=== PATIENT | male | born 1955 | race Caucasian/White ===

== ENCOUNTER 2017-04-23 10:42 | Emergency (ER) | payer OTHER ==
[2017-04-23 10:53] VITALS: BP 143/94
--- NOTE | 2017-05-21 14:57 | UC ---
Lower Extremity/Ankle HPI - HPI Summary HPI Summary: missed a step 4 days ago he felt a pop in the back of his leg has had worsening pain and swelling right leg - History of Current Complaint Hx Obtained From: Patient Onset/Duration: Sudden Onset, Lasting Days - 4, Still Present Severity Initially: Mild Severity Currently: Moderate Pain Intensity: 4 Pain Scale Used: 0-10 Numeric Aggravating Factor(s): Standing, Ambulation Able to Bear Weight: Yes <Danii Villanueva - Last Filed: 05/21/17 14:57> <Caitlyn Paez - Last Filed: 05/22/17 06:58> - History of Current Complaint Chief Complaint: UCLowerExtremity Stated Complaint: LEG PAIN Time Seen by Provider: 04/23/17 11:51 - Allergies/Home Medications Allergies/Adverse Reactions: Allergies Allergy/AdvReac Type Severity Reaction Status Date / Time Amoxicillin [From Augmentin] Allergy rash, Verified 04/23/17 10:53 itching Clavulanic Acid Allergy rash, Verified 04/23/17 10:53 [From Augmentin] itching Home Medications: Home Medications Acetaminophen [Eq Pain Reliever] 1 tab PO BID PRN 04/23/17 [History Confirmed ] Ascorbic Acid TAB* [Vitamin C TAB*] 1 tab PO DAILY 04/23/17 [History Confirmed 04/23/17] PMH/Surg Hx/FS Hx/Imm Hx Previously Healthy: No - thrombophlebitis Cardiovascular History: Hypertension - Surgical History Surgical History: Yes Surgery Procedure, Year, and Place: varicose vein "closure procedure" 12 years ago - Family History Known Family History: Positive: Cardiac Disease, Hypertension - Social History Occupation: Employed Full-time Lives: With Family Alcohol Use: Occasionally Alcohol Amount: works at a [employer] Substance Use Type: None Smoking Status (MU): Former Smoker Type: Cigarettes Length of Time of Smoking/Using Tobacco: quit 25 years ago - Immunization History Most Recent Influenza Vaccination: 2014/2015 <Danii Villanueva - Last Filed: 05/21/17 14:57> Review of Systems Constitutional: Negative Skin: Negative Eyes: Negative ENT: Negative Respiratory: Negative Cardiovascular: Negative Gastrointestinal: Negative Genitourinary: Negative Motor: Negative Neurovascular: Negative Musculoskeletal: Myalgia - right lower leg Neurological: Negative Psychological: Negative All Other Systems Reviewed And Are Negative: Yes <Danii Villanueva - Last Filed: 05/21/17 14:57> Physical Exam Triage Information Reviewed: Yes Appearance: Well-Appearing, No Pain Distress, Well-Nourished Vital Signs: Initial Vital Signs Temp 96.5 F 04/23/17 10:47 Pulse 67 04/23/17 10:47 Resp 16 04/23/17 10:47 BP 143/94 04/23/17 10:47 Pulse Ox 97 04/23/17 10:47 Vital Signs Reviewed: Yes Eye Exam: Normal Eyes: Positive: Conjunctiva Clear ENT Exam: Normal ENT: Positive: Normal ENT inspection, Hearing grossly normal. Negative: Nasal congestion, Nasal drainage, Trismus, Muffled/hoarse voice Dental Exam: Normal Neck exam: Normal Neck: Positive: Supple, Nontender Respiratory Exam: Normal Respiratory: Positive: Chest non-tender, No respiratory distress, No accessory muscle use Cardiovascular Exam: Normal Cardiovascular: Positive: RRR, Pulses Normal, Brisk Capillary Refill Musculoskeletal Exam: Normal Musculoskeletal: Positive: Strength Intact, ROM Intact, No Edema Neurological Exam: Normal Neurological: Positive: Alert, Muscle Tone Normal Psychological Exam: Normal Skin Exam: Normal <Danii Villanueva - Last Filed: 05/21/17 14:57> Vital Signs: Initial Vital Signs Temp 96.5 F 04/23/17 10:47 Pulse 67 04/23/17 10:47 Resp 04/23/17 10:47 BP 143/94 04/23/17 10:47 Pulse Ox 97 04/23/17 10:47 <Caitlyn Paez - Last Filed: 05/22/17 06:58> Lower Extremity Course/Dx - Course Course Of Treatment[place] [facility] [place] - Differential Dx/Diagnosis Differential Diagnosis/HQI/PQRI: Contusion, Dislocation, DVT, Fracture (Closed) , Sprain, Strain Provider Diagnoses: right lower leg pain <Danii Villanueva - Last Filed: 05/21/17 14:57> Discharge <Danii Villanueva - Last Filed: 05/21/17 14:57> <Caitlyn Paez - Last Filed: 05/22/17 06:58> - Discharge Plan Condition: Stable Disposition: AGAINST MEDICAL ADVICE Referrals: Tarah Sheffield [Primary Care Provider] - Attestation Statement User Type: Provider - I was available for consult. This patient was seen by the KIMBER. The patient was not presented to, seen by, or examined by me. -Sarai <Caitlyn Paez - Last Filed: 05/22/17 06:58>
== END 2017-04-23 12:12 | disposition left against medical advice (07) ==
LOC: UCEAST 10:42
DX: M79.661 Pain in right lower leg (principal); I10 Essential (primary) hypertension; Z86.72 Personal history of thrombophlebitis; Z88.1 Allergy status to other antibiotic agents; Z87.891 Personal history of nicotine dependence
CPT/HCPCS: 99212; G0463

== ENCOUNTER 2017-04-23 12:35 | Emergency (ER) | payer OTHER ==
[2017-04-23 13:48] LABS: Hematocrit 44 % (42-52); Hemoglobin 15.3 g/dl (14.0-18.0); Mean Corpuscular HGB Conc 35 g/dl (31-36); Mean Corpuscular Hemoglobin 32 pg (27-31); Mean Corpuscular Volume 92 fL (80-94); Mean Platelet Volume 7 um3 (7.4-10.4); Red Blood Count 4.77 10^6/ul (4.0-5.4); Red Cell Distribution Width 13 % (10.5-15); White Blood Count 8.1 10^3/ul (3.5-10.8)
[2017-04-23 14:03] LABS: Albumin 3.9 g/dL (3.2-5.2); BUN/Creatinine Ratio 20.8 (8-20); Calcium 9.2 mg/dL (8.6-10.3); EGFR African American 96.3 (>60); EGFR Non-African American 74.9 (>60); Globulin 2.6 g/dL (2-4); Potassium 4.2 mmol/L (3.5-5.0); Total Bilirubin 0.7 mg/dL (0.2-1.0); Total Protein 6.5 g/dL (6.4-8.9)
--- NOTE | 2017-04-23 14:46 | RAD ---
Indication: Right calf pain. Duplex Doppler sonography of the deep venous system of the right lower extremity deep venous system was performed. Bilaterally the common femoral veins appear patent and compressible. Right proximal greater saphenous vein, proximal deep femoral vein, femoral vein, popliteal vein, posterior tibial veins and peroneal veins appear patent and compressible. In the area of pain there are noncompressible vessels and what appears to be the gastrocnemius veins. These are considered deep veins. IMPRESSION: NONCOMPRESSIBLE GASTROCNEMIUS VEINS IN THE PROXIMAL CALF CONSISTENT WITH DEEP VENOUS THROMBOSIS OF THE GASTROCNEMIUS VEINS.
[2017-04-23] MEDS ORDERED: Rivaroxaban TAB(*) 15 MG PO ONE (14:57)
--- NOTE | 2017-04-23 15:04 | ED ---
Lower Extremity - HPI Summary HPI Summary: 62M presents with right calf pain for a week. He states he felt a pop a week ago and that has had pain since. He has history of thrombophlebitis. He denies any recent immbolization or family history of blood clots. He states the pain is worst when he ambulate for a period of time. He denies any chest pain or SOB. - History of Current Complaint Chief Complaint: EDExtremityLower Stated Complaint: POSS DVT /RT LEG Time Seen by Provider: 04/23/17 12:42 Pain Intensity: 5 - Allergies/Home Medications Allergies/Adverse Reactions: Allergies Allergy/AdvReac Type Severity Reaction Status Date / Time Amoxicillin [From Augmentin] Allergy rash, Verified 04/23/17 10:53 itching Clavulanic Acid Allergy rash, Verified 04/23/17 10:53 [From Augmentin] itching PMH/Surg Hx/FS Hx/Imm Hx Endocrine/Hematology History: Denies: Hx Diabetes, Hx Thyroid Disease Cardiovascular History: Reports: Hx Hypertension Respiratory History: Denies: Hx Asthma, Hx Chronic Obstructive Pulmonary Disease (COPD) GI History: Denies: Hx Ulcer - Surgical History Surgery Procedure, Year, and Place: varicose vein "closure procedure" 12 years ago Infectious Disease History: No Infectious Disease History: Denies: Hx Hepatitis, Hx Human Immunodeficiency Virus (HIV), History Other Infectious Disease, Traveled Outside the in Last 30 Days - Family History Known Family History: Positive: Cardiac Disease, Hypertension - Social History Alcohol Use: Occasionally Alcohol Amount: works at a [employer] ([place]) Substance Use Type: Reports: None Smoking Status (MU): Former Smoker Type: Cigarettes Length of Time of Smoking/Using Tobacco: quit 25 years ago Review of Systems Negative: Fever Negative: Chest Pain Negative: Shortness Of Breath Positive: Edema - right calf All Other Systems Reviewed And Are Negative: Yes Physical Exam Triage Information Reviewed: Yes Vital Signs On Initial Exam: Initial Vitals Temp Pulse Resp BP Pulse Ox 97.8 F 61 16 147/91 97 04/23/17 12:38 04/23/17 12:38 04/23/17 12:38 04/23/17 12:38 04/23/17 12:38 Vital Signs Reviewed: Yes Appearance: Positive: Well-Appearing Skin: Positive: Warm, Dry Head/Face: Positive: Normal Head/Face Inspection Eyes: Positive: Normal, Conjunctiva Clear Respiratory/Lung Sounds: Positive: Clear to Auscultation, Breath Sounds Present Cardiovascular: Positive: Normal, RRR Musculoskeletal: Positive: Strength/ROM Intact - right leg, Chuy Sign Right, Edema Right - calf, Other - varciose veins present. good pulses, capillary refill Diagnostics - Vital Signs Vital Signs Temp Pulse Resp BP Pulse Ox 04/23/17 12:45 97.8 F 61 17 147/91 97 04/23/17 12:42 97.8 F 61 16 147/91 97 04/23/17 12:38 97.8 F 61 16 147/ 97 - Laboratory Lab Results: Lab Results 04/23/17 04/23/17 04/23/17 Range/Units 13:40 13:40 13:40 WBC 8.1 (3.5-10.8) 10^3/ul RBC 4.77 (4.0-5.4) 10^6/ul Hgb 15.3 (14.0-18.0) g/dl Hct 44 (42-52) % MCV 92 (80-94) fL MCH 32 H (27-31) pg MCHC 35 (31-36) g/dl RDW 13 (10.5-15) % Plt Count 205 (150-450) 10^3/ul MPV 7 L (7.4-10.4) um3 Neut % (Auto) 64.1 (38-83) % Lymph % (Auto) 23.6 L (25-47) % [place] % (Auto) 8.0 (1-9) % Eos % (Auto) 3.7 (0-6) % Baso % (Auto) 0.6 (0-2) % Absolute Neuts (auto) 5.2 (1.5-7.7) 10^3/ul Absolute Lymphs (auto) 1.9 (1.0-4.8) 10^3/ul Absolute Monos (auto) 0.6 (0-0.8) 10^3/ul Absolute Eos (auto) 0.3 (0-0.6) 10^3/ul Absolute Basos (auto) 0.1 (0-0.2) 10^3/ul Absolute Nucleated RBC 0 10^3/ul Nucleated RBC % 0.1 INR (Anticoag Therapy) 0.94 (0.89-1.11) Sodium 137 (133-145) mmol/L Potassium 4.2 (3.5-5.0) mmol/L Chloride 108 (101-111) mmol/L Carbon Dioxide 24 (22-32) mmol/L Anion Gap 5 (2-11) mmol/L BUN 21 (6-24) mg/dL Creatinine 1.01 (0.67-1.17) mg/dL Est GFR ( Amer) 96.3 (>60) Est GFR (Non-Af Amer) 74.9 (>60) BUN/Creatinine Ratio 20.8 H (8-20) Glucose 92 (70-100) mg/dL Calcium 9.2 (8.6-10.3) mg/dL Total Bilirubin 0.70 (0.2-1.0) mg/dL AST 23 (13-39) U/L ALT 22 (7-52) U/L Alkaline Phosphatase 85 (34-104) U/L Total Protein 6.5 (6.4-8.9) g/dL Albumin 3.9 (3.2-5.2) g/dL Globulin 2.6 (2-4) g/dL Albumin/Globulin Ratio 1.5 (1-3) Result Diagrams: 04/23/17 13:40 04/23/17 13:40 Lab Statement: Any lab studies that have been ordered have been reviewed, and results considered in the medical decision making process. - Ultrasound No standard instances Ultrasound Interpretation: Positive (See Comments) - IMPRESSION: NONCOMPRESSIBLE GASTROCNEMIUS VEINS IN THE PROXIMAL CALF CONSISTENT WITH DEEP VENOUS THROMBOSIS OF THE GASTROCNEMIUS VEINS. Ultrasound Interpretation Completed By: Radiologist Lower Extremity Course/Dx - Course Course Of Treatment: 62M presents with right calf pain for a week. He states he felt a pop a week ago and that has had pain since. He has history of thrombophlebitis. He denies any recent immbolization or family history of blood clots. He states the pain is worst when he ambulate for a period of time. He denies any chest pain or SOB. on exam pos chuy. u/s shows DVT. discussed options with patient and decided to use xarelto. told to follow up with primary for continued care. patient understands and agrees with plan - Diagnoses Differential Diagnosis/HQI/PQRI: Positive: DVT, Fracture (Closed), Sprain Provider Diagnoses: Deep venous thrombosis Discharge - Discharge Plan Condition: Good Disposition: HOME Prescriptions: Rivaroxaban TAB(*) [Xarelto 15 mg(*)] 15 mg PO BID #41 tab Patient Education Materials: Deep Venous Thrombosis (ED) Referrals: Tarah Sheffield [Primary Care Provider] - Additional Instructions: Take xarelto twice a day for 21 days then once a day Take with food Avoid Aspirin or ibuprofen, use Tylenol for pain Follow up with primary care physician for continued care Return to ED if develop any chest pain or SOB any new or worsening symptoms
[2017-04-23 16:19] VITALS: BP 146/88
== END 2017-04-23 16:05 | disposition home or self-care (01) ==
LOC: ED 12:35
DX: I82.4Z1 Acute embolism and thrombosis of unspecified deep veins of right distal lower extremity (principal); M79.661 Pain in right lower leg; Z87.891 Personal history of nicotine dependence
CPT/HCPCS: 36415; 80053; 85025; 85610; 99282